=== PATIENT | male | born 1960 | race Caucasian/White ===

== ENCOUNTER 2021-12-19 11:33 | Day surgery (SDC) | payer OTHER, SELFPAY ==
--- NOTE | 2021-12-19 12:20 | HO.ANESPROP2 ---
[facility] Active Problems Active Problems: htn Past Medical History Medical History Cancer Surgical History Surgical History Hx of hand surgery Hx of knee surgery History of Problems with Anesthesia: No Social History Social History Patient Tobacco Use Status: Never used Tobacco Second Hand Smoke Exposure: No Use of substances other than those prescribed or required for medical reasons: No Are you DNR?: No Advance Directives: No Advance Directives Information Provided: Yes Advance Directives on File: No Meds Allergies Allergy/AdvReac Type Severity Reaction Status Date / Time amoxicillin [From Augmentin] Allergy Unknown Verified 12/19/21 09:54 clavulanic acid Allergy Unknown Verified 12/19/21 09:54 [From Augmentin] Home Medications Medication Instructions Recorded Confirmed Last Taken Type lisinopril 10 mg tablet 1 tab PO QAM 12/19/21 12/19/21 Unknown History oxycodone 5 mg/5 mL oral solution 5 mg PO Q6H PRN Pain 12/19/21 12/19/21 Unknown History simethicone 125 mg tablet 125 mg PO BEDTIME PRN gas 12/19/21 12/19/21 Unknown History Exam Exam Date and Time: December 19, 2021 1220 Airway Mallampati Class: II TM Dist: >3cm Neck ROM: Full Loose/Missing/Broken Teeth: No Heart: rrr Lungs: clear Assessment and Plan Final Anesthetic Review History of Problems with Anesthesia: No NPO: Yes ASA Class: II Final Preanesthetic Review: No Changes in Pt Med Stat, Meds/Allgs Chart Reviewed, Consent Obtained/Reviewed and Anes Risks/Benef Reviewed Patient Risk: Intermediate Procedure Risk: Low Anesthetic Plan Anesthetic Plan: MAC: Disposition: Standard PACU
[2021-12-19 12:28] VITALS: BMI 26.6
[2021-12-19 12:41] VITALS: BP 122/77; PULSE 84; RESP 16; TEMP 36.1; O2SAT 99
[2021-12-19 13:43] VITALS: BP 119/66; PULSE 86; RESP 16; TEMP 36.7; O2SAT 98
--- NOTE | 2021-12-19 13:47 | PM.OP ---
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 Proximal gastric mass) Condition: stable Disposition: PACU
[2021-12-19 13:58] VITALS: BP 136/89; PULSE 88; RESP 18; TEMP 36.7; O2SAT 96
--- NOTE | 2021-12-20 04:09 | OP_ITS ---
SURGEON: Balbir Arrieta MD INDICATIONS: The patient presents for evaluation of abdominal pain, dysphagia, and an abdominal CT scan suggestive of metastatic cancer. Full consent has been obtained from him for this, including risks of bleeding and perforation. PREOPERATIVE DIAGNOSIS: POSTOPERATIVE DIAGNOSIS: PROCEDURE PERFORMED: Esophagogastroduodenoscopy with biopsies. ESTIMATED BLOOD LOSS: COMPLICATIONS: ANESTHESIA: Monitored anesthesia care. 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 DESCRIPTION OF PROCEDURE: The patient was placed in the left lateral decubitus position. The Olympus video gastroscope was passed in the posterior oropharynx and upper esophagus under direct vision. The scope was passed slowly to the distal esophagus. The gastroesophageal junction appeared at 39 cm. There is evidence of a friable polypoid type mass at the gastroesophageal junction that seemed to be primarily coming from the stomach. There was no evidence of any esophagitis, obvious evidence of Chen mucosa, nor any stricture. The scope was able to easily pass this and entered the stomach. In the proximal stomach, along the posterior wall, and then circumferentially just beneath the EG junction was more ulcerated mass consistent with neoplasm as well. The scope was advanced to the pylorus and the duodenum was cannulated in the descending portion. The duodenum including the bulb appeared normal without mass or ulceration. The scope was withdrawn back in the stomach. The gastric antrum and body appeared normal with good peristalsis. The scope was retroflexed visualizing the proximal stomach carefully. I was able to visualize the very proximal mass in the proximal stomach beneath the gastroesophageal junction. Again, it was quite ulcerated and neoplastic in appearance. The scope was straightened and withdrawn back into the very proximal stomach. Multiple biopsies were obtained from the abnormal area in the proximal stomach, as well as in the very distal esophagus. These were all placed in the same container. Proximal to 39 cm, the esophageal mucosa appeared normal. The scope was withdrawn from the patient. He tolerated the procedure well and was returned to the recovery area in stable condition. 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 Biopsies taken. PLAN: The results of the biopsies will be checked. He had improved with his oral intake overnight with smoothies as opposed to trying solid food. I did advise him to continue that. He will obviously need oncology referral as he is not a surgical candidate given the findings on his CT scan with obvious metastatic disease to lymph nodes and probable liver. I shall give him a prescription for omeprazole 40 mg daily. He was advised to stay off all aspirin, NSAIDs, and alcohol. This has been discussed with his family. MD ROSALBA Weaver/PEDRO / [id number]
== END 2021-12-19 14:40 | disposition home or self-care (01) ==
PROVIDERS: PCP Nurse Practitioner; Visit Provider Internal Medicine
PROC: 0DJ08ZZ Inspection of Upper Intestinal Tract, Via Natural or Artificial Opening Endoscopic (ICD-10-PCS; CPT 43235; principal; 2021-12-19 13:00)
DX: C78.7 Secondary malignant neoplasm of liver and intrahepatic bile duct (principal); C16.9 Malignant neoplasm of stomach, unspecified; R10.13 Epigastric pain; R13.10 Dysphagia, unspecified; K21.9 Gastro-esophageal reflux disease without esophagitis; Z79.899 Other long term (current) drug therapy; Z88.1 Allergy status to other antibiotic agents
CPT/HCPCS: 43239; 88305; 88342; 88360